=== PATIENT | male | born 1985 | race Caucasian/White ===

== ENCOUNTER 2019-03-24 13:32 | Inpatient (IN) | payer MEDICAID, SELFPAY ==
[2019-03-24 14:05] VITALS: BP 146/81; PULSE 107; RESP 20; TEMP 37.1; O2SAT 99; BMI 24.3
--- NOTE | 2019-03-24 14:11 | ED_ITS ---
Entered by Kelly Bolaños, acting as scribe for Adele Sharp MD Mar 24, 2019 13:32 HPI - General Adult General: Chief complaint: General Medical Stated complaint: swelling, redness L arm Time Seen by Provider: 03/24/19 14:11 Source: patient and RN notes reviewed Mode of arrival: ambulatory Limitations: no limitations History of Present Illness: HPI narrative: 33 yo male presents to ED with complaints of red streaks going from his L hand continuing up his L arm. He said he thinks he used some bad drugs . He used methamphetamines 3 days ago. He said his urine was dark 5 days ago but he began urinating black this morning. He said his joints hurt. He said he has red spots on L arm and back. He said he feels sick and is unable to eat; when he tries to eat he gags. The patient has a history of rhabdomyolysis. He said he smokes marijuana occasionally but does not drink. complaint: L arm infection Onset (ago): hour(s) (4) Location: left (arm) Radiation: back Severity: severe Quality: aching and constant Pain Consistency: constant Relieving factors: none Exacerbating factors: movement Associated symptoms: Reports decreased appetite, malaise, nausea and weakness; Deny chest pain, dyspnea, headache(s) or rash Treatments prior to arrival: none Review of Systems Const: Reports: malaise Eyes: Denies: change in vision ENMT: Denies: throat pain or ear pain Card: Denies: chest pain, swelling of feet/ankles, shortness of breath on exertion or shortness of breath when lying down Resp: Denies: shortness of breath or productive cough GI: Reports: nausea : Denies: flank pain Musc: Denies: back pain Skin/Breast: Denies: rash Neuro: Denies: headache, numbness in extremities or weakness in extremities Psych: Denies: depression Endo: Denies: excessive thirst [place]/Lymph: Denies: easy bruising PFS ED PFSH: Medical History (Updated 03/24/19 @ 18:09 by Janet Mcdermott MD) IV drug user Methamphetamine abuse Social History (Updated 03/24/19 @ 18:04 by Janet Mcdermott MD) Smoking and tobacco status: current every day smoker Alcohol intake: current Substance/Drug Use: current Desire information about substance/drug rehabilitation?: Yes Counseling given: Yes Physical Exam Const: COMMON NORMALS: no apparent distress, oriented x3 and alert GENERAL APPEARANCE: cooperative and well developed; not in distress and not diaphoretic ORIENTATION/CONSCIOUSNESS: Yes awake, Yes oriented to person, Yes oriented to place and Yes oriented to time HENMT: COMMON NORMALS: normocephalic, head/scalp atraumatic, external ears normal, external nose normal and moist oral mucous membranes HEAD & SCALP: normocephalic and atraumatic FACE & SINUS: normal facial exam; no facial tenderness NOSE: external nose normal EXTERNAL EAR: Yes external ears normal MOUTH: oral and palatal mucosa normal, lip normal and tongue normal TEETH & GINGIVA: no abnormal tooth and associated gingiva THROAT: posterior oropharynx normal and uvula midline Eye: COMMON NORMALS: PERRL and EOMs intact bilaterally PUPIL: Yes PERRL Neck/C-Spine: COMMON NORMALS: full ROM, supple and no JVD GENERAL: Yes normal visual inspection and Yes trachea midline CERVICAL SPINE: No cervical spine tenderness Lymph: LYMPHATIC: no lymphadenopathy noted Chest: COMMONS NORMALS: inspection of chest normal Resp: COMMON NORMALS: normal respiratory effort, no use of accessory muscles and clear to auscultation bilaterally EFFORT & INSPECTION: Yes able to speak in complete sentences and Yes symmetric chest movement AUSCULTATION: clear to auscultation bilaterally Cardio: COMMON NORMALS: no JVD, regular rate, regular rhythm, no gallops, no murmurs and peripheral pulses 2+ throughout RATE: regular rate RHYTHM: regular rhythm PERIPHERAL PULSES: pulses 2+ throughout GI: COMMON NORMALS: normal to inspection, nondistended, normoactive bowel sounds, soft to palpation and non-tender PALPATION: Yes soft Back/Pelvis: COMMON NORMALS: thoracic and lumbar spine normal to inspection and thoraco-lumbar ROM normal Extremity: COMMON NORMALS: normal to inspection, full ROM and normal capillary refill Neuro: COMMON NORMALS: oriented x3, CN's II-XII intact bilaterally, moves all extremities, no focal motor deficits and no sensory deficits noted SENSORIUM/ORIENTATION: Yes alert, Yes oriented to person, Yes oriented to place and Yes oriented to time Psych: COMMON NORMALS: mental status grossly normal, thought process normal, cooperative, affect normal, speech normal and activity/motor behavior normal SPEECH: Yes normal speech THOUGHT PROCESS: normal thought process Skin: COMMON NORMALS: skin turgor normal GENERAL SKIN EXAM: turgor normal Course ED course: Patient with rapidly progressing infection in his left hand and arm - as well as some pustular lesions on the extremities and trunk. He has systemic symptoms of malaise. He admits to meth IV use three days ago - he would like to stop using. He reports dark urine and history of rhabdomyolysis in the past - CK normal today. IVF, vancomycin started in the ED. He only wanted tylenol for pain. Vital Signs: Vital signs: Vital Signs Temperature 98.2 F 03/24/19 17:04 Pulse Rate 74 03/24/19 17:04 Respiratory Rate 18 03/24/19 17:04 Blood Pressure 132/68 03/24/19 17:04 Pulse Oximetry 97 03/24/19 17:04 [facility] - General Adult Lab Data: Labs: Lab Results 03/24/19 03/24/19 03/24/19 Range/Units 14:32 14:32 14:36 WBC 16.5 H (4.0-10.0) 10^3/ uL RBC 4.90 (4.1-5.3) 10^6/u L Hgb 14.0 (11.7-16.6) g/dL Hct 41.3 L (42.0-52.0) % MCV 84.3 (80-94) fL MCH 28.6 (28.0-34.0) pg MCHC 33.9 (30.0-36.0) g/dL RDW 13.0 (12.1-15.1) % Plt Count 337 (130-400) 10^3/c mm MPV 9.5 (7.4-10.4) fL Neut % (Auto) 72.8 % Lymph % (Auto) 16.6 % Blair % (Auto) 8.1 % Eos % (Auto) 1.8 % Baso % (Auto) 0.4 % Neut # (Auto) 12.0 H (1.8-7.7) 10^3/u L Lymph # (Auto) 2.7 (0.8-4.8) 10^3/u L Blair # (Auto) 1.3 H (0.2-0.9) 10^3/u L Eos # (Auto) 0.3 (0.0-0.8) 10^3/u L Baso # (Auto) 0.1 (0.0-0.1) 10^3/u L Nucleated RBC % (a uto) 0 % Nucleated RBCs # 0.0 /100WBC ESR (0-10) mm/hr Sodium (136-145) mmol/L Potassium (3.5-5.1) mmol/L Chloride (98-107) mmol/L Carbon Dioxide (22-29) mmol/L Anion Gap (5-19) BUN (6-20) mg/dL Creatinine (0.7-1.2) mg/dL GFR Calculation (90-130) mL/min Glucose (65-115) mg/dL Estimat Average Gl ucose Hemoglobin A1c (4.0-6.0) % Lactate (0.5-2.2) mmol/L Calcium (8.5-10.5) mg/dL Total Bilirubin (0.15-1.2) mg/dL AST (0-40) U/L ALT (0-41) U/L Alkaline Phosphata se (40-130) IU/L Creatine Kinase (39-308) U/L C-Reactive Protein (0.0-4.9) mg/L Total Protein (6.6-8.7) g/dL Albumin (3.5-5.2) g/dL Globulin (1.3-4.6) g/dL Urine Color Marycarmen (Yellow) Urine Appearance Sl hazy (CLEAR) Urine pH 7.0 (5-7) Ur Specific Gravit y 1.015 (1.005-1.030) Urine Protein Neg (Negative) Urine Glucose (UA) 2+ (Normal) Urine Ketones 1+ H (Negative) Urine Occult Blood 3+ H (Negative) Urine Nitrate Negative (Negative) Urine Bilirubin 1+ H (NEGATIVE) Urine Urobilinogen 4+ H (Negative) mg/dL Ur Leukocyte Alise ase Trace H (Negative) Urine RBC 50-80 H (0-2) /hpf Urine WBC 40-55 H (0-5) /hpf Ur Squamous Epith Cells 0-4 H (0-5) Urine Bacteria 1+ H (NONE) Urine Opiates Scre en Negative (Negative) ng/mL Acetaminophen (10-30) ug/mL Ur Barbiturates Sc reen Negative (Negative) ng/mL Ur Phencyclidine S crn Negative (Negative) ng/mL Ur Amphetamines Sc reen Positive H (Negative) ng/mL U Benzodiazepines Scrn Negative (Negative) ng/mL Urine Cocaine Scre en Negative (Negative) ng/mL U Marijuana (THC) Screen Positive H (Negative) ng/mL Ethyl Alcohol (0-10) mg/dL Hepatitis A IgM Ab (Nonreactive) Hep Bs Antigen (Nonreactive) Hep Bs Antibody (0-8.5) Hep B Core Total A b (Nonreactive) 03/24/19 03/24/19 03/24/19 Range/Units 14:36 14:36 14:36 WBC (4.0-10.0) 10^3/ uL RBC (4.1-5.3) 10^6/u L Hgb (11.7-16.6) g/dL Hct (42.0-52.0) % MCV (80-94) fL MCH (28.0-34.0) pg MCHC (30.0-36.0) g/dL RDW (12.1-15.1) % Plt Count (130-400) 10^3/c mm MPV (7.4-10.4) fL Neut % (Auto) % Lymph % (Auto) % Blair % (Auto) % Eos % (Auto) % Baso % (Auto) % Neut # (Auto) (1.8-7.7) 10^3/u L Lymph # (Auto) (0.8-4.8) 10^3/u L Blair # (Auto) (0.2-0.9) 10^3/u L Eos # (Auto) (0.0-0.8) 10^3/u L Baso # (Auto) (0.0-0.1) 10^3/u L Nucleated RBC % (a uto) % Nucleated RBCs # /100WBC ESR 24 H (0-10) mm/hr Sodium 130 L (136-145) mmol/L Potassium 3.4 L (3.5-5.1) mmol/L Chloride 91 L (98-107) mmol/L Carbon Dioxide 26 (22-29) mmol/L Anion Gap 16.4 (5-19) BUN 7 (6-20) mg/dL Creatinine 0.9 (0.7-1.2) mg/dL GFR Calculation 97.2 (90-130) mL/min Glucose 118 H (65-115) mg/dL Estimat Average Gl ucose Hemoglobin A1c (4.0-6.0) % Lactate 1.8 (0.5-2.2) mmol/L Calcium 9.4 (8.5-10.5) mg/dL Total Bilirubin 1.2 (0.15-1.2) mg/dL AST 42 H (0-40) U/L ALT 61 H (0-41) U/L Alkaline Phosphata se 80 (40-130) IU/L Creatine Kinase 210 (39-308) U/L C-Reactive Protein 67.4 H (0.0-4.9) mg/L Total Protein 8.1 (6.6-8.7) g/dL Albumin 4.5 (3.5-5.2) g/dL Globulin 3.6 (1.3-4.6) g/dL Urine Color (Yellow) Urine Appearance (CLEAR) Urine pH (5-7) Ur Specific Gravit y (1.005-1.030) Urine Protein (Negative) Urine Glucose (UA) (Normal) Urine Ketones (Negative) Urine Occult Blood (Negative) Urine Nitrate (Negative) Urine Bilirubin (NEGATIVE) Urine Urobilinogen (Negative) mg/dL Ur Leukocyte Alise ase (Negative) Urine RBC (0-2) /hpf Urine WBC (0-5) /hpf Ur Squamous Epith Cells (0-5) Urine Bacteria (NONE) Urine Opiates Scre en (Negative) ng/mL Acetaminophen < 5.0 L (10-30) ug/mL Ur Barbiturates Sc reen (Negative) ng/mL Ur Phencyclidine S crn (Negative) ng/mL Ur Amphetamines Sc reen (Negative) ng/mL U Benzodiazepines Scrn (Negative) ng/mL Urine Cocaine Scre en (Negative) ng/mL U Marijuana (THC) Screen (Negative) ng/mL Ethyl Alcohol < 10 (0-10) mg/dL Hepatitis A IgM Ab (Nonreactive) Hep Bs Antigen (Nonreactive) Hep Bs Antibody (0-8.5) Hep B Core Total A b (Nonreactive) 03/24/19 03/24/19 Range/Units 14:36 14:36 WBC (4.0-10.0) 10^3/ uL RBC (4.1-5.3) 10^6/u L Hgb (11.7-16.6) g/dL Hct (42.0-52.0) % MCV (80-94) fL MCH (28.0-34.0) pg MCHC (30.0-36.0) g/dL RDW (12.1-15.1) % Plt Count (130-400) 10^3/c mm MPV (7.4-10.4) fL Neut % (Auto) % Lymph % (Auto) % Blair % (Auto) % Eos % (Auto) % Baso % (Auto) % Neut # (Auto) (1.8-7.7) 10^3/u L Lymph # (Auto) (0.8-4.8) 10^3/u L Blair # (Auto) (0.2-0.9) 10^3/u L Eos # (Auto) (0.0-0.8) 10^3/u L Baso # (Auto) (0.0-0.1) 10^3/u L Nucleated RBC % (a uto) % Nucleated RBCs # /100WBC ESR (0-10) mm/hr Sodium (136-145) mmol/L Potassium (3.5-5.1) mmol/L Chloride (98-107) mmol/L Carbon Dioxide (22-29) mmol/L Anion Gap (5-19) BUN (6-20) mg/dL Creatinine (0.7-1.2) mg/dL GFR Calculation (90-130) mL/min Glucose (65-115) mg/dL Estimat Average Gl ucose 105 Hemoglobin A1c 5.3 (4.0-6.0) % Lactate (0.5-2.2) mmol/L Calcium (8.5-10.5) mg/dL Total Bilirubin (0.15-1.2) mg/dL AST (0-40) U/L ALT (0-41) U/L Alkaline Phosphata se (40-130) IU/L Creatine Kinase (39-308) U/L C-Reactive Protein (0.0-4.9) mg/L Total Protein (6.6-8.7) g/dL Albumin (3.5-5.2) g/dL Globulin (1.3-4.6) g/dL Urine Color (Yellow) Urine Appearance (CLEAR) Urine pH (5-7) Ur Specific Gravit y (1.005-1.030) Urine Protein (Negative) Urine Glucose (UA) (Normal) Urine Ketones (Negative) Urine Occult Blood (Negative) Urine Nitrate (Negative) Urine Bilirubin (NEGATIVE) Urine Urobilinogen (Negative) mg/dL Ur Leukocyte Alise ase (Negative) Urine RBC (0-2) /hpf Urine WBC (0-5) /hpf Ur Squamous Epith Cells (0-5) Urine Bacteria (NONE) Urine Opiates Scre en (Negative) ng/mL Acetaminophen (10-30) ug/mL Ur Barbiturates Sc reen (Negative) ng/mL Ur Phencyclidine S crn (Negative) ng/mL Ur Amphetamines Sc reen (Negative) ng/mL U Benzodiazepines Scrn (Negative) ng/mL Urine Cocaine Scre en (Negative) ng/mL U Marijuana (THC) Screen (Negative) ng/mL Ethyl Alcohol (0-10) mg/dL Hepatitis A IgM Ab Non-reactive (Nonreactive) Hep Bs Antigen Non-reactive (Nonreactive) Hep Bs Antibody 3.5 (0-8.5) Hep B Core Total A b Non-reactive (Nonreactive) Imaging Data^: CXR: Radiologist's impression: [address] [address] XRay Report Signed Patient: Vini Elder #: [id number] : 1985Acct#:[id number] Age/Sex: 33 / MADM Date: 03/24/19 [facility] Dr: Ordering Provider/Ordering MD: Adele Sharp MD Date of Service: 03/24/19 Procedure(s): XR chest 1V portable [id number] Accession Number(s): [id number] Report Number: [id number] WS: [id number] PORTABLE CHEST HISTORY: fever COMPARISON: 06/11/2013 Lungs are clear and well expanded. No pleural effusion or pneumothorax. Cardiac size: Normal. Mediastinum/Aorta: Normal mediastinum. No osseous abnormality seen. XR/XR chest 1V portable [id number] IMPRESSION: Unremarkable portable chest. Dictated By:Paula Aldana DO Signed By:Paula Aldana DOSigned Date/Time:03/24/19 1500 DD/ Discharge Plan Discharge Patient Disposition: Placed in Observation Admit Provider: Janet Mcdermott Discharge Date/Time: 03/24/19 17:06 Coding Level of Care Code ED Business Affairs Manager for Chg Fwd Exam Problem Focused The documentation recorded by the Miky alvarado Valerie R, accurately reflects the service I personally performed and the decisions made by Lila poe Kathryn L, MD Mar 24, 2019 13:32
--- NOTE | 2019-03-24 14:17 | XR_ITS ---
WS: [id number] PORTABLE CHEST HISTORY: fever COMPARISON: 06/11/2013 Lungs are clear and well expanded. No pleural effusion or pneumothorax. Cardiac size: Normal. Mediastinum/Aorta: Normal mediastinum. No osseous abnormality seen. XR/XR chest 1V portable [id number] IMPRESSION: Unremarkable portable chest.
[2019-03-24 14:42] LABS: Basophils # 0.1 10^3/uL (0.0-0.1); Basophils % 0.4 %; Eosinophils # 0.3 10^3/uL (0.0-0.8); Eosinophils % 1.8 %; Hematocrit 41.3 % (42.0-52.0); Lymphocytes # 2.7 10^3/uL (0.8-4.8); Lymphocytes % 16.6 %; Mean Corpuscular HGB Conc 33.9 g/dL (30.0-36.0); Mean Corpuscular Hemoglobin 28.6 pg (28.0-34.0); Mean Corpuscular Volume 84.3 fL (80-94); Mean Platelet Volume 9.5 fL (7.4-10.4); Monocytes # 1.3 10^3/uL (0.2-0.9); Monocytes % 8.1 %; Neutrophils % 72.8 %; Nucleated Red Blood Cells % 0 %; Platelet Count 337 10^3/cmm (130-400); White Blood Count 16.5 10^3/uL (4.0-10.0)
[2019-03-24 14:56] LABS: Alanine Aminotransferase 61 U/L (0-41); Albumin Level 4.5 g/dL (3.5-5.2); Alkaline Phosphatase 80 IU/L (40-130); Anion Gap 16.4 (5-19); Aspartate Amino Transferase 42 U/L (0-40); Blood Urea Nitrogen 7 mg/dL (6-20); C Reactive Protein 67.4 mg/L (0.0-4.9); Calcium 9.4 mg/dL (8.5-10.5); Carbon Dioxide 26 mmol/L (22-29); Chloride 91 mmol/L (98-107); Creatine Phosphokinase 210 U/L (39-308); Globulin 3.6 g/dL (1.3-4.6); Glomerular Filtration Rate 97.2 mL/min (90-130); Glucose 118 mg/dL (65-115); Lactate (Lactic Acid level) 1.8 mmol/L (0.5-2.2); Potassium 3.4 mmol/L (3.5-5.1); Sodium 130 mmol/L (136-145); Total Bilirubin 1.2 mg/dL (0.15-1.2); Total Protein 8.1 g/dL (6.6-8.7)
[2019-03-24] MEDS: ondansetron 2 mg/ML SDV 2 mL 4 MG IVP (14:57)
[2019-03-24] MEDS: vancomycin 1,000 MG in sodium chloride 0.9% 250 ML 250 MG IV (14:58)
[2019-03-24] MEDS: lactated ringers 1,000 ML 999 ML IV (15:02)
[2019-03-24 15:09] LABS: Acetaminophen < 5.0 ug/mL (10-30); Alcohol Level < 10 mg/dL (0-10)
[2019-03-24 15:22] LABS: Erythrocyte Sedimentation Rate 24 mm/hr (0-10)
[2019-03-24 15:22] LABS: Glucose Urine UA 2+ (Normal); Ketones Urine 1+ (Negative); Protein Urine Neg (Negative); Specific Gravity, Urine 1.015 (1.005-1.030); Urine Appearance SL Hazy (CLEAR); Urine Color Amber (Yellow)
[2019-03-24 15:23] LABS: Add Urine Microscopic? YES; Bilirubin Urine 1+ (NEGATIVE); Blood Urine 3+ (Negative); Leukocyte Esterase Urine Trace (Negative); Nitrate Urine Negative (Negative); Urobilinogen Urine 4+ mg/dL (Negative)
[2019-03-24 15:26] LABS: RBC Urine 50-80 /hpf (0-2)
[2019-03-24 15:27] LABS: Add Urine Culture? Yes; Bacteria Urine 1+; Squamous Epithelial Cell Urine 0-4 (0-5); WBC Urine 40-55 /hpf (0-5)
[2019-03-24 15:45] LABS: Barbiturates Screen Urine Negative (Negative); Benzodiazepines Screen Urine Negative (Negative); Cocaine Screen Urine Negative (Negative); Opiate Screen Urine Negative (Negative); PCP Screen Urine Negative (Negative); THC Screen Urine Positive (Negative)
--- NOTE | 2019-03-24 15:59 | USR_ITS ---
PROCEDURE INFORMATION: Exam: US Duplex Upper Extremity Veins Exam date and time: 03/24/2019 4:15 PM Age: 33 years old Clinical indication: Edema, localized; Lower extremity, left and upper extremity, left; Arm, upper and arm, lower and hand; Patient HX: Last 24 hours PT has had increasing redness and pain in lt hand and forearm; Additional info: Pain, swelling TECHNIQUE: Imaging protocol: Real-time Duplex ultrasound of the Upper Extremities with 2-D ulrich scale, color Doppler flow and spectral waveform analysis with image documentation. Complete exam focused on the bilateral upper extremity veins. COMPARISON: No relevant prior studies available. FINDINGS: Right deep veins: Unremarkable. Axillary and brachial veins are patent throughout without thrombus. Normal Doppler waveforms. Normal compressibility and/or augmentation response. Visualized internal jugular and subclavian veins are patent. Right superficial veins: Unremarkable. Visualized cephalic and basilic veins are patent without thrombus. Left deep veins: Unremarkable. Axillary and brachial veins are patent throughout without thrombus. Normal Doppler waveforms. Normal compressibility and/or augmentation response. Visualized internal jugular and subclavian veins are patent. Left superficial veins: Unremarkable. Visualized cephalic and basilic veins are patent without thrombus. Soft tissues: Unremarkable. US/[place] [id number] IMPRESSION: No acute findings. No evidence of deep vein thrombosis.
[2019-03-24 16:05] LABS: Amphetamines Screen Urine Positive (Negative)
[2019-03-24 16:38] VITALS: BP 137/79; PULSE 89; RESP 18; O2SAT 97
[2019-03-24 17:04] VITALS: BP 132/68; PULSE 74; RESP 18; TEMP 36.8; O2SAT 97
[2019-03-24 17:48] LABS: Estmated Average Glucose 105; Hemoglobin A1C 5.3 % (4.0-6.0)
--- NOTE | 2019-03-24 17:59 | PM.HP ---
Providers/Chief Complaint Admitting Physician: Janet Mcdermott MD Chief Complaint: RED STREAK UP LEFT ARM History of Present Illness Vini Elder is a 33 year old male with a history of methamphetamine use, last injected 3 days ago into the right arm through a cottonball and as he often does. Comes in today with complaints of multiple small follicles developing over the left arm red streaks extending up the left arm which he noticed over the last 24 hours. Is also noticed some additional particles over his lower back and states they developed over the last 24 hours. He has no history of fevers at this time. Endorsing some chills. Work-up in the ER is significant for leukocytosis of 16. Denies sharing any needles. Often re uses his needles. No h/o trauma. Reports history of bacteremia when he was a teenager however states that this was secondary to a dog bite that he had sustained on his hand. No known cardiac or valvular issues. Has multiple dental caries.No h/o syphilis. No h/o gonococcal infections. No joint pain. Review of Systems General: Reports: 10 or more systems reviewed and unremarkable except in HPI and below Const: Denies: fever, chills or body aches Eyes: Denies: change in vision, blurry vision or photophobia ENMT: Reports: hoarseness; Denies: throat pain, enlarged tonsils, painful swallowing or nasal congestion Card: Denies: chest pain, palpitations, irregular heart rhythm, edema, swelling of feet/ankles, lightheadedness, pre-syncope, shortness of breath on exertion or shortness of breath when lying down Resp: Denies: shortness of breath, productive cough, non-productive cough, wheezing, stridor, pain on inspiration, change in phlegm color, coughing up blood or chest congestion GI: Denies: abdominal pain, nausea, vomiting, vomiting blood, coffee grounds in vomit, difficulty swallowing, heartburn/indigestion, diarrhea, constipation, cramping, change in stool character, blood in stool or black tarry stool : Denies: flank pain, painful urination, urinary frequency, urinary urgency, urinary hesitancy or blood in urine Musc: Denies: neck pain, back pain, extremity pain, joint swelling, joint warmth or deformity Neuro: Denies: headache, numbness in extremities, weakness in extremities, changes in sensation, difficulty walking, frequent falls, dizziness, vertigo, behavioral changes, slurred speech or seizure-like activity Psych: Denies: anxiety, depression, suicidal ideation or homicidal ideation Endo: Denies: excessive urination, excessive thirst, tired all the time, cold intolerance or hot flashes [place]/Lymph: Denies: easy bruising or easy bleeding Medications/Allergies Home Medications Medication Instructions Recorded Confirmed Last Taken Type No Known Home Medications 03/24/19 03/24/19 Unknown History Allergies Allergy/AdvReac Type Severity Reaction Status Date / Time Penicillins Allergy ALGY-Swell Verified 03/24/19 14:10 Lip/Tongue/Throat PFSH Acute PFSH: Medical History (Updated 03/24/19 @ 18:09 by Janet Mcdermott MD) IV drug user Methamphetamine abuse Social History (Updated 03/24/19 @ 18:04 by Janet Mcdermott MD) Smoking and tobacco status: current every day smoker Alcohol intake: current Substance/Drug Use: current Desire information about substance/drug rehabilitation?: Yes Counseling given: Yes Vitals/I&O/Wt Last Vital Signs Temp 98.2 F 03/24/19 17:04 Pulse 74 03/24/19 17:04 Resp 18 03/24/19 17:04 BP 132/68 03/24/19 17:04 Pulse Ox 97 03/24/19 17:04 Weight last 48 hrs Weight 77.111 kg Physical Exam Narrative: EXAM NARRATIVE: GEN: Awake, alert and oriented, no acute distress CVS: S1S2 N RS: CTA B/L except crackles over RUL Abd: Soft, nt/nd , bs+ INSIDE SALES COORDINATOR: no focal neuro deficits EXT: multiple small follicles, total 5-6 in no. over his left arm with ed streaky rash, almost resembling lymphangitis, nessa withou gross tenderness. similar follculitis over lower back in midline. No spinal tenderness. No other join swelling. Faint maculopapular rash over upper anterior chest. No peripheral stigmata of endocarditis. Data : 03/24/19 14:36 03/24/19 14:36 Micro: Microbiology 03/24/19 14:43 Blood Culture - Preliminary Blood SPECIMEN COLLECTED 03/24/19 14:36 Blood Culture - Preliminary Blood SPECIMEN COLLECTED A&P Assessment and plan (1) Sepsis: Status: Acute Code(s): A41.9 - Sepsis, unspecified organism (2) Folliculitis: Status: Acute Code(s): L73.9 - Follicular disorder, unspecified (3) Lymphangitis: Status: Acute Code(s): I89.1 - Lymphangitis (4) IV drug user: Status: Acute Code(s): F19.90 - Other psychoactive substance use, unspecified, uncomplicated Additional A&P Information Admit to MedSurg unit. Sepsis criteria met with tachycardia and leukocytosis IV fluid resuscitation with normal saline at 75 cc an hour Patient gives history of IV drug use, injecting 2 cotton balls, high risk. With diffuse bilateral findings of scattered folliculitis and possible lymphangitis of the left arm, suspect septic thrombophlebitis versus bloodstream infection and possible endocarditis. 2 sets of blood cultures have been ordered. Repeat blood culture with fever spikes greater than 101 Fahrenheit. Upper extremity Doppler of both arms to look for thrombophlebitis Start empiric treatment with IV vancomycin. Monitor for methamphetamine Ativan as needed as needed Nicotine patch HIV, syphilis and gonococcal screening. Rash does not appear consistent with secondary syphilis. Further orders to be based on results of preliminary testing. DVT ppx: lovenox Code status: Attestations Medical Necessity Statement*: Anticipate greater than 2 midnight admission for sepsis, iv abx, work-up of possible lymphangitis and bloodstream infection. Coding Level of Care Code Acute Service Team Leader for Niko Keisha Diagnoses Sepsis A41.9 Folliculitis L73.9 Lymphangitis I89.1 IV drug user F19.90
[2019-03-24 18:20] LABS: Hepatitis A Antibody IgM. Non-Reactive (Nonreactive); Hepatitis B Surface AB. 3.5 (0-8.5); Hepatitis B Surface Antigen. Non-Reactive (Nonreactive)
[2019-03-24 18:58] LABS: Hepatitis C Virus Antibody Reactive (Nonreactive)
[2019-03-24] MEDS: enoxaparin 40 mg/0.4 mL Syringe SUBCUT (19:07)
[2019-03-24] MEDS: sodium chloride 0.9% 1,000 ML 75 ML IV (19:08)
[2019-03-24 20:00] VITALS: BP 122/62; PULSE 80; RESP 16; TEMP 36.9; O2SAT 98
[2019-03-24] MEDS: nicotine 14 mg Patch 1 PATCH TRANSDERMA (20:23)
[2019-03-24 21:47] LABS: Rapid Plasma Reagin Syphilis Nonreactive (Nonreactive)
[2019-03-24 23:19] LABS: HIV 1 & 2 Antibody Non-Reactive (Non-Reactiv); HIV 1 & 2 Antigen Non-Reactive (Non-Reactiv)
[2019-03-25] VITALS: BP 127/76; PULSE 86; RESP 20; TEMP 37.1; O2SAT 96
--- NOTE | 2019-03-25 02:40 | PM.EVENT ---
Event Note Event Note: Called that patient jaw swollen since beginning of shift. He is complaining of increase in left arm pain. Reports no change in red streaks or sores, but left hand more swollen also. Says having trouble swallowing due to pain and physical difficulty. This has been present for a week or so. On exam, has induration of right mandibular area from inside the mounth to about 1cm beyond the mandible on that side. Very poor dentition with necrotic looking teeth. Not able to express any pus and gum line not as bad appearing as I would expect given appearance of teeth. Small mildly tender, cervical chain lymphadenopathy noted. Mucosa pink. Skin without erythema. No definite fluctuance noted. Submandibular space remains soft. ROM neck not limited. On left arm, purulent sore medical 3rd digit, erythema dorsum of 4th digit extending beyond wrist proximately about 5 inches. Left axillary tender lymphadenopathy noted. Pt is not acutely ill appearing but does look to have discomfort at left arm in particular. On vancomycin. Suspect has dental abscess now also forming. Will add clindamycin for anaerobic coverage given penicillin allergy. With report of trouble swallowing, will go on and get a CT of head and neck soft tissue with contrast to evaluate further, rule out ludwigs angina. I discussed getting contrast with patient and he is agreeable. Denies history of contrast reactions. Cr 0.9. He is requesting more pain medication. Will give one dose of Toradol. retimed next dose of ibuprofen. Noted to be hep c positive with slight elevation in transaminases so have not ordered schedule acetaminophen. May have to consider oral narcotic agents at some point but trying to hold off. Discussed with him keeping arm elevated, applying some warm, moist heat. Had some Ativan earlier which did help some as well. Will monitor for progessing pain or migration of skin findings. Reviewed with nursing and patient.
[2019-03-25] MEDS: ketorolac 30 mg/mL INJ IVP (02:56)
[2019-03-25] MEDS: clindamycin 600 MG/50 ML PREMIX 100 MG IV (02:58)
--- NOTE | 2019-03-25 03:06 | CTR_ITS ---
PROCEDURE INFORMATION: Exam: CT Neck With Contrast Exam date and time: 03/25/2019 3:17 AM Age: 33 years old Clinical indication: Dysphagia / difficulty swallowing and mass, lump, or swelling in neck; Painful swallowing; Additional info: Acute mandibular swelling right and difficulty swallowing TECHNIQUE: Imaging protocol: Computed tomography images of the neck with intravenous contrast. Total DLP: 665.69 mGy-cm Radiation optimization: All CT scans at this facility use at least one of these dose optimization techniques: automated exposure control; mA and/or kV adjustment per patient size (includes targeted exams where dose is matched to clinical indication); or iterative reconstruction. Contrast material: OMNI 300; Contrast volume: 95 ml; Contrast route: 20G; COMPARISON: No relevant prior studies available. FINDINGS: Sinuses: [id number] mucosal thickening in the right maxillary sinus and minimal or mild mucosal thickening in a few ethmoidal air cells and the left maxillary sinus. No air-fluid levels. Nasopharynx: Unremarkable. Oropharynx: Prominence of the soft tissues along the posterior margin of the tongue bilaterally suggesting possible hyperplasia of lymphoid tissue. No significant tonsillar enlargement. Hypopharynx: Unremarkable Larynx: Unremarkable. Normal epiglottis. Retropharyngeal space: Unremarkable. Submandibular/Parotid glands: Unremarkable parotid and left submandibular glands. Slightly increased density within and probable slight enlargement of the right submandibular gland suggesting hyperemia. Thyroid: Normal. No enlarged or calcified nodules. Lymph nodes: 11 mm short axis diameter of a left axillary node and slight prominence of other left axillary nodes. Minimal enlargement of 1 level 2 node in the right neck. Enlarged or prominent right submandibular nodes. Trachea: Visualized trachea unremarkable. Lungs: Unremarkable upper lungs. Dental: Dental caries. Mastoid air cells: Left mastoidectomy. Possible minimal residual left mastoid disease. Bones/joints: Minimal narrowing of the C5-C6 disc. No acute fracture. Soft tissues: Density of 70-75 HU within the approximately 1.9 x 2.2 x 1.2 cm mass along the external margin of the right mandibular body. Soft tissue swelling and extensive haziness in the superficial fat of the right cheek and jaw. No gas bubbles within the right mass and the soft tissues of the right face/jaw. CT/CT neck w con* [id number] IMPRESSION: 1. Mass along the periphery of the right mandibular body suggesting an abscess, especially considering the presence of dental caries. Probable cellulitis in the right jaw and adjacent face as well, likely accounting for the slight enlargement of a few right neck nodes and probable slight hyperemia of the right submandibular. 2. Enlargement of at least 1 left axillary node. Possible lymphoid hyperplasia in both sides of the posterior margin of the tongue. 3. Chronic sinus disease detailed above. Left mastoidectomy. Possible minimal residual left mastoid disease. Radiation Dose CTDIVOL = (mGy): DLP = 665.69 (mGy-cm)
[2019-03-25] MEDS: iohexol 300 mg/mL 100 mL Btl IV (03:41)
[2019-03-25 04:00] VITALS: BP 139/86; PULSE 76; RESP 18; TEMP 37; O2SAT 98
[2019-03-25] MEDS: sodium chloride 0.9% 1,000 ML 75 ML IV (06:06)
[2019-03-25 07:07] LABS: Basophils # 0.1 10^3/uL (0.0-0.1); Basophils % 0.6 %; Eosinophils # 0.4 10^3/uL (0.0-0.8); Eosinophils % 3.5 %; Hematocrit 36.6 % (42.0-52.0); Hemoglobin 12.2 g/dL (11.7-16.6); Lymphocytes # 2.5 10^3/uL (0.8-4.8); Lymphocytes % 24.9 %; Mean Corpuscular HGB Conc 33.3 g/dL (30.0-36.0); Mean Corpuscular Hemoglobin 28.4 pg (28.0-34.0); Mean Corpuscular Volume 85.3 fL (80-94); Mean Platelet Volume 10.3 fL (7.4-10.4); Monocytes # 0.8 10^3/uL (0.2-0.9); Neutrophils # 6.3 10^3/uL (1.8-7.7); Neutrophils % 62.7 %; Nucleated Red Blood Cells % 0 %; Platelet Count 287 10^3/cmm (130-400); Red Blood Count 4.29 10^6/uL (4.1-5.3); Red Cell Distribution Width 13.2 % (12.1-15.1); White Blood Count 10.1 10^3/uL (4.0-10.0)
[2019-03-25 07:20] LABS: Alanine Aminotransferase 43 U/L (0-41); Albumin Level 3.3 g/dL (3.5-5.2); Alkaline Phosphatase 71 IU/L (40-130); Anion Gap 14.5 (5-19); Aspartate Amino Transferase 30 U/L (0-40); Blood Urea Nitrogen 9 mg/dL (6-20); Calcium 8.7 mg/dL (8.5-10.5); Carbon Dioxide 24 mmol/L (22-29); Chloride 101 mmol/L (98-107); Globulin 3.4 g/dL (1.3-4.6); Glomerular Filtration Rate 129.9 mL/min (90-130); Glucose 117 mg/dL (65-115); Potassium 3.5 mmol/L (3.5-5.1); Sodium 136 mmol/L (136-145); Total Bilirubin 0.5 mg/dL (0.15-1.2); Total Protein 6.7 g/dL (6.6-8.7)
[2019-03-25 07:34] VITALS: BP 115/68; PULSE 76; RESP 20; TEMP 36.4; O2SAT 97
[2019-03-25] MEDS: nicotine 14 mg Patch 1 PATCH TRANSDERMA (08:47)
[2019-03-25 11:17] VITALS: BP 129/72; PULSE 91; RESP 22; TEMP 36.5; O2SAT 98
[2019-03-25] MEDS: cefTRIAXone 2,000 MG in sodium chloride 0.9% (plus) 50 ML 100 MG IV (11:30)
[2019-03-25] MEDS: ibuprofen 200 mg Tablet 600 MG PO (11:36)
[2019-03-25 13:42] LABS: Vancomycin Trough 13.3 ug/mL (10-15)
[2019-03-25] MEDS: metroNIDAZOLE 500 MG Tablet PO (13:55)
--- NOTE | 2019-03-25 14:25 | PC.CHAP ---
Pastoral Care Encounter/Spiritual Assessment Type of Contact [] Declined director of global sales visit [] Patient/Family/Request visit [] Outpatient visit [] Follow-up visit [] Physician referral [] Code/Alert [x] Routine visit [] Staff referral [] Actively dying [] Patient sleeping [x] Family support [] [] Out of room [] Palliative care [] [] Receiving care in room [] Pre-surgical visit [] Trauma [] Long length of stay [] ICU visit [] Other: Relational/Emotional Strength [x] Patient feels connected with others/family/visitors/staff [] Distress [] Loneliness/isolation [] Abandonment Spirituality of Patient [] Person of Aditi [] Attends Pentecostal of their Aditi [x] Believes in Prayer [] Reads Bible or Religion materials [] There are Spiritual issues to be addressed Decorating Machine Operator Interventions [x] Prayer [x] Active listening [x] Non-anxious presence [x] Spiritual/emotional support [] Crisis/trauma care [] Spiritual counseling [] Bereavement support [] Provided bereavement packet [] Provided Bible/devotional materials [] Provided toy/stuffed animal, coloring book to patient or family member [] Provided Communion [] Anointing/[place] [] Salvation [x] Completed spiritual assessment [] Other: Impact on Illness or Injury [] Angry [] Fearful [] Anxious [] Often cries [] Exhaustion [] Unable to work [] Unable to attend spiritism [] Unable to walk/stand [] Unable to read [] Unable to drive [] Unable to eat/drink [] Unable to sleep [] Unable to be with family [] Patient intubated [] Other: Summary Paient was sitting up watching T.V and visiting with . Decorating Machine Operator had prayer for him and . Time spent with patient 15 min.
[2019-03-25 15:09] VITALS: BP 142/92; PULSE 92; RESP 22; TEMP 36.6; O2SAT 99
--- NOTE | 2019-03-25 15:13 | PM.PN ---
Subjective Subjective: Interval history: Arms are improving, no red streaks anymore. Doppler UE negative for thrombus in either limb. Overnight events noted. developed mandibular swelling yesterday at night. CT shows Mass along the periphery of the right mandibular body suggesting an abscess, especially considering the presence of dental caries. Probable cellulitis in the right jaw and adjacent face as well, likely accounting for the slight enlargement of a few right neck nodes and probable slight hyperemia of the right submandibular. Medications: Reviewed: Yes Vitals/I&O/Wt Last Vital Signs Temp 97.9 F 03/25/19 15:09 Pulse 92 03/25/19 15:09 Resp 22 H 03/25/19 15:09 BP 142/92 03/25/19 15:09 Pulse Ox 99 03/25/19 15:09 03/25/19 03/25/19 03/25/19 06:59 14:59 22:59 Intake Total 822.5 / 2612.5 660 / 660 50 / 710 Output Total 1000 / 1400 Balance -177.5 / 1212.5 660 / 660 50 / 710 Weight last 48 hrs Weight 77.111 kg Physical Exam Narrative: EXAM NARRATIVE: GEN: Awake, alert and oriented, no acute distress HEENT: B/L upper extremity streaks are better. Lymphadenopathy+. Follicles improving today. New swelling noted over R side of face submandibular region. Similar swelling noted over R gums internally CVS: S1S2 N RS: CTA B/L Abd: Soft, nt/nd , bs+ TRUST ACCOUNTS SUPERVISOR: no focal neuro deficits Data : 03/25/19 06:40 03/25/19 06:40 Micro: Microbiology 03/24/19 14:43 Blood Culture - Preliminary Blood NEGATIVE TO DATE 03/24/19 14:36 Blood Culture - Preliminary Blood NEGATIVE TO DATE 03/24/19 14:43 Chlamydia trachomatis ([facility]) - Final Urine Random Neisseria gonorrhoeae ([facility]) - Final A&P Assessment and plan (1) Submandibular swelling: Status: Acute Code(s): R22.0 - Localized swelling, mass and lump, head; R22.1 - Localized swelling, mass and lump, neck (2) Sepsis: Status: Acute Code(s): A41.9 - Sepsis, unspecified organism (3) Folliculitis: Status: Acute Code(s): L73.9 - Follicular disorder, unspecified (4) Lymphangitis: Status: Acute Code(s): I89.1 - Lymphangitis (5) IV drug user: Status: Acute Code(s): F19.90 - Other psychoactive substance use, unspecified, uncomplicated (6) Methamphetamine abuse: Status: Acute Code(s): F15.10 - Other stimulant abuse, uncomplicated Additional A&P Information WBC trending down today from 16 to 10. Arms clinically improving Now also detected to have R submandibular likely odontogenic abscess Continue iv vancomycin D/c clindamycin and start iv ceftriaxone and po flagyl for odontogenic infection. per review of past records patient has received cefazolin in the past without any adverse effects, therefore he tolerates cephalosporins No current airway compromise, patient able to chew, reports swelling is improving ENT consult on Wednesday to assess for possible drainage Blood cx remains pending at this time DVT ppx: lovenox Code status: Attestations Medical Necessity Statement*: admitted for sepsis 2/2 lymphangitis, submandibular infection, cultures pending Coding Level of Care Code Acute Health Care Legal Assistant for g Fwd Diagnoses Submandibular swelling R22.0; R22.1 Sepsis A41.9 Folliculitis L73.9 Lymphangitis I89.1 IV drug user F19.90 Methamphetamine abuse F15.10
--- NOTE | 2019-03-25 15:39 | PM.DCS ---
Discharge Providers Date of Admission: 03/24/19 17:05 Date of Discharge: March 25, 2019 Attending Provider at Admission: Janet Mcdermott MD Attending Provider at Discharge: Janet Mcdermott MD Diagnoses at Discharge Discharge Diagnosis (1) Submandibular swelling: Status: Acute (2) Sepsis: Status: Acute (3) Folliculitis: Status: Acute (4) Lymphangitis: Status: Acute (5) IV drug user: Status: Acute (6) Methamphetamine abuse: Status: Acute Reason for Visit Reason for Visit: Reason For Visit: RED STREAK UP LEFT ARM Hospital Course Discharge Summary: Patient decided to leave AMA in spite of ongoing treatment. It is extremely high risk for patient to leave with ongoing work up for sepsis, with high clinical suspicion for blood stream infection. For now, he has been provided with a prescription for cefuroxime and flagyl for empiric coverage, however in the absence of culture results, these may not be the targeted antibiotics. Discharge Data Data Completed and Pending: Completed Studies During Hospitalization Category Date Time Status CT neck w con* [id number] Urgent Cat Scan 03/25/19 03:06 Completed XR chest 1V dilan ble [id number] Urgent Exams 03/24/19 14:17 [place] [id number] Urgent Ultrasound 03/24/19 15:59 Completed Pending at discharge Category Date Time Status Blood Culture Sta t Lab 03/24/19 14:43 Results Urine Culture Sta t Lab 03/24/19 14:32 Received Labs from last 24 hours 03/25/19 03/25/19 03/25/19 13:15 06:40 06:40 WBC 10.1 H RBC 4.29 Hgb 12.2 Hct 36.6 L MCV 85.3 MCH 28.4 MCHC 33.3 RDW 13.2 Plt Count 287 MPV 10.3 Neut % (Auto) 62.7 Lymph % (Auto) 24.9 Adams % (Auto) 8.0 Eos % (Auto) 3.5 Baso % (Auto) 0.6 Neut # (Auto) 6.3 Lymph # (Auto) 2.5 Adams # (Auto) 0.8 Eos # (Auto) 0.4 Baso # (Auto) 0.1 Nucleated RBC % (a uto) 0 Nucleated RBCs # 0.0 Sodium 136 Potassium 3.5 Chloride 101 Carbon Dioxide 24 Anion Gap 14.5 BUN 9 Creatinine 0.7 GFR Calculation 129.9 Glucose 117 H Estimat Average Gl ucose Hemoglobin A1c Calcium 8.7 Total Bilirubin 0.5 AST 30 ALT 43 H Alkaline Phosphata se 71 Total Protein 6.7 Albumin 3.3 L Globulin 3.4 Vancomycin Trough 13.3 Urine Opiates Scre en Ur Barbiturates Sc reen Ur Phencyclidine S crn Ur Amphetamines Sc reen U Benzodiazepines Scrn Urine Cocaine Scre en U Marijuana (THC) Screen RPR Hepatitis A IgM Ab Hep Bs Antigen Hep Bs Antibody Hep B Core Total A b Hepatitis C Antibo dy HIV 1&2 Ab & HIV 1 Ag HIV 1&2 Antibody 03/24/19 03/24/19 03/24/19 14:36 14:36 14:36 WBC RBC Hgb Hct MCV MCH MCHC RDW Plt Count MPV Neut % (Auto) Lymph % (Auto) Adams % (Auto) Eos % (Auto) Baso % (Auto) Neut # (Auto) Lymph # (Auto) Adams # (Auto) Eos # (Auto) Baso # (Auto) Nucleated RBC % (a uto) Nucleated RBCs # Sodium Potassium Chloride Carbon Dioxide Anion Gap BUN Creatinine GFR Calculation Glucose Estimat Average Gl ucose 105 Hemoglobin A1c 5.3 Calcium Total Bilirubin AST ALT Alkaline Phosphata se Total Protein Albumin Globulin Vancomycin Trough Urine Opiates Scre en Ur Barbiturates Sc reen Ur Phencyclidine S crn Ur Amphetamines Sc reen U Benzodiazepines Scrn Urine Cocaine Scre en U Marijuana (THC) Screen RPR Nonreactive Hepatitis A IgM Ab Hep Bs Antigen Hep Bs Antibody Hep B Core Total A b Hepatitis C Antibo dy HIV 1&2 Ab & HIV 1 Ag Non-reactive HIV 1&2 Antibody Non-reactive 03/24/19 03/24/19 14:36 14:32 WBC RBC Hgb Hct MCV MCH MCHC RDW Plt Count MPV Neut % (Auto) Lymph % (Auto) Adams % (Auto) Eos % (Auto) Baso % (Auto) Neut # (Auto) Lymph # (Auto) Adams # (Auto) Eos # (Auto) Baso # (Auto) Nucleated RBC % (a uto) Nucleated RBCs # Sodium Potassium Chloride Carbon Dioxide Anion Gap BUN Creatinine GFR Calculation Glucose Estimat Average Gl ucose Hemoglobin A1c Calcium Total Bilirubin AST ALT Alkaline Phosphata se Total Protein Albumin Globulin Vancomycin Trough Urine Opiates Scre en Negative Ur Barbiturates Sc reen Negative Ur Phencyclidine S crn Negative Ur Amphetamines Sc reen Positive H U Benzodiazepines Scrn Negative Urine Cocaine Scre en Negative U Marijuana (THC) Screen Positive H RPR Hepatitis A IgM Ab Non-reactive Hep Bs Antigen Non-reactive Hep Bs Antibody 3.5 Hep B Core Total A b Non-reactive Hepatitis C Antibo dy Reactive H HIV 1&2 Ab & HIV 1 Ag HIV 1&2 Antibody Vitals: Last Vital Signs Temp 97.9 F 03/25/19 15:09 Pulse 92 03/25/19 15:09 Resp 22 H 03/25/19 15:09 BP 142/92 03/25/19 15:09 Pulse Ox 99 03/25/19 15:09 Discharge Plan Discharge Patient Disposition: Left Against Medical Advice Condition: Stable Prescriptions: New cefuroxime axetil 500 mg tablet 500 mg PO BID 7 Days Qty: 14 RF: 0 Flagyl 500 mg tablet 500 mg PO TID 7 Days Qty: 21 RF: 0 No Action No Known Home Medications RF: 0 Discharge Date/Time: 03/25/19 15:49 Discharge Attestations Time Spent in Discharge Care*: less than 30 min Quality Metrics Clinical Quality Measures During this hospital stay, did patient experience: None Coding Level of Care Code Acute Vacuum Truck Driver for g Fwd Diagnoses Submandibular swelling R22.0; R22.1 Sepsis A41.9 Folliculitis L73.9 Lymphangitis I89.1 IV drug user F19.90 Methamphetamine abuse F15.10
[2019-03-25 15:48] VITALS: BP 142/92; PULSE 92; RESP 22; TEMP 36.6; O2SAT 99
== END 2019-03-25 15:49 | disposition left against medical advice (07) | DRG 872 ==
LOC: ER 14:11 → MEDSURG 16:27
PROVIDERS: Admitting Provider Student in an Organized Health Care Education/Training Program; Emergency Provider Emergency Medicine; Visit Provider Student in an Organized Health Care Education/Training Program
DX: A41.9 Sepsis, unspecified organism (principal); L73.9 Follicular disorder, unspecified; F17.210 Nicotine dependence, cigarettes, uncomplicated; I89.1 Lymphangitis; F15.10 Other stimulant abuse, uncomplicated
CPT/HCPCS: 12345; 36415; 70491; 71045; 80053; 80202; 80306; 80307; 81001; 82550; 83036; 83605; 85025; 85651; 86140; 86592; 86705; 86706; 86709; 86803; 87040; 87086; 87340; 87491; 87591; 87806; 93970; 96360; 96361; 96372; 96375; 99283; A9270; G0378; J0696; J1650; J1885; J2405; J3370; J3490; J7030; J7050; Q9967

== ENCOUNTER 2019-03-24 13:32 | Emergency (ER) | payer MEDICAID, SELFPAY | END 2019-03-24 17:06 | disposition still patient (30) | LOC: ER 05-17 10:07 | PROVIDERS: Emergency Provider Emergency Medicine | DX: Z76.89 Persons encountering health services in other specified circumstances (principal) | CPT/HCPCS: 36415; 71045; 80053; 80306; 80307; 81001; 82550; 83036; 83605; 85025; 85651; 86140; 86592; 86705; 86706; 86709; 86803; 87040; 87086; 87340; 87491; 87591; 87806; 93970; 96360; 96361; 96365; 96366; 96368; 96375; 99283; 99285; A9270; G0378; J2405; J3370; J7050 ==

== ENCOUNTER 2021-06-12 12:59 | Emergency (ER) | payer MEDICAID, SELFPAY ==
[2021-06-12 13:24] VITALS: BP 183/98; PULSE 77; RESP 18; TEMP 36.6; O2SAT 98; BMI 25.8
--- NOTE | 2021-06-12 13:38 | ED_ITS ---
HPI - Dental/Oral General: Chief complaint: Dental/Oral Stated complaint: Toothache Time Seen by Provider: 06/12/21 13:36 Source: patient Mode of arrival: ambulatory Limitations: no limitations History of Present Illness: Patient is a 35-year-old male who presents to ED today with a complaint of dental pain and swelling that he began noticing yesterday. Patient is eating and drinking normally. He does not complain of any difficulty swallowing or controlling secretions. Teeth map: 1. Onset (ago): day(s) (yesterday) Duration: constant Severity: moderate Relieving factors: nothing Exacerbating factors: nothing Associated symptoms: Reports no associated symptoms; Denies odynophagia Treatment prior to arrival: none Review of Systems Eyes: Denies: change in vision ENMT: Reports: dental pain; Denies: throat pain, odynophagia, hoarseness, oral sores, nasal discharge, nasal congestion or sinus pain GI: Denies: nausea or vomiting Musc: Denies: neck pain Skin/Breast: Denies: rash Neuro: Denies: headache(s), dizziness or vertigo PFS ED PFSH: Medical History IV drug user Methamphetamine abuse Social History Smoking and tobacco status: current every day smoker Alcohol intake: current Desire information about substance/drug rehabilitation?: Yes Counseling given: Yes Physical Exam Const: COMMON NORMALS: no acute distress, patient oriented x3, no limitations, alert and well nourished GENERAL APPEARANCE: cooperative HENMT: COMMON NORMALS: Normal external nose present HEAD & SCALP: normal to inspection FACE & SINUS IMAGES: 1. mild swelling to R upper lip NOSE: Normal external nose present MOUTH: Normal oral and palatal mucosa present and tongue normal TEETH & GINGIVA: Yes poor dentition and Yes other (pt has extensive wide spread dental decay) TEETH & GINGIVA IMAGES: 1. several completely decayed teeth with some edema/developing abscess to upper gumline w/o drainage or fluctuance THROAT: posterior oropharynx normal, tonsils normal and uvula midline Eye: GENERAL EYE: appearance normal, both eyes and all related structures Neck/C-Spine: COMMON NORMALS: full ROM and no lymphadenopathy GENERAL: Yes normal visual inspection, No anterior neck swelling, No lymphadenopathy and No submandibular swelling Neuro: JULIOCESAR COMA SCALE: document GCS findings [place] coma scale eye opening: Spontaneous [place] coma scale verbal response: Orientated Juliocesar coma scale motor response: Obey commands Juliocesar coma scale total score: 15 COMMON NORMALS: patient oriented x3, CN's II-XII intact bilaterally, moves all extremities, no focal motor deficits and no sensory deficits noted SENSORIUM/ORIENTATION: Yes alert Course Vital Signs: Vital signs: Vital Signs Temperature 97.8 F 06/12/21 13:24 Pulse Rate 77 06/12/21 13:24 Respiratory Rate 18 06/12/21 13:24 Blood Pressure 183/98 06/12/21 13:24 Pulse Oximetry 98 06/12/21 13:24 MDM - Dental/Oral Medical Decision Making Will give IM clinda here and sent home with RX. Patient was given dental resources. Strict return to ED precautions given regarding worsening pain, swelling, fevers, DUKES, visual changes or any other concerns he has. Discharge Plan Discharge Patient Disposition: Home Clinical Impression: Dental abscess, Dental caries Condition: Stable Prescriptions: New Peridex 0.12 % mouthwash 15 ml buccal BID Qty: 473 0RF clindamycin HCl 300 mg capsule 300 mg PO Q6H 7 Days Qty: 28 0RF Discharge Orders: Discharge ED (Routine); Ordered 06/12/21 Ordered By: Jailyn Garrido Patient Instructions: Dental Abscess (ED) Coding Level of Care Code ED Nurse'S Aides Teacher for Barbara Valdes
[2021-06-12] MEDS: clindamycin 150 mg/mL SDV 6 mL 600 MG IM (14:09)
== END 2021-06-12 14:12 | disposition home or self-care (01) ==
PROVIDERS: Emergency Provider Physician Assistant
DX: K04.7 Periapical abscess without sinus (principal); K02.9 Dental caries, unspecified
CPT/HCPCS: 96372; 99283; J3490

== ENCOUNTER 2024-02-05 13:37 | Emergency (ER) | payer SELFPAY ==
[2024-02-05 13:56] VITALS: BP 154/101; PULSE 91; RESP 16; TEMP 36.6; O2SAT 96; BMI 29.5
--- NOTE | 2024-02-05 14:51 | W.ED.BACK ---
HPI - Back Pain/Injury General: Chief Complaint: Back Pain/Injury Stated Complaint: Back pain Time Seen by Provider: 02/05/24 14:25 History of Present Illness: Patient is a 38-year-old male that presents to the emergency department with complaints of low back pain that radiates into the left lower extremity. Patient reports that he lifted his grandchild on [place] and felt a pulling sensation. Has had pain that has progressed to now radiating down the left lower extremity along the lateral aspect. Patient denies numbness or tingling. He denies prior back injury. He has trialed [id number]-otl-[id number] remedies but no relief in his symptoms Related Data Previous Rx's Medication Instructions Recorded chlorhexidine gluconate 0.12 % 15 ml buccal BID #473 mL 06/12/21 mouthwash (Peridex) Allergies Allergy/AdvReac Type Severity Reaction Status Date / Time Penicillins Allergy DEXPhillip-Swell Verified 03/24/19 14:10 Lip/Tongue/Throat Review of Systems General: Reports: 10 or more systems reviewed and unremarkable except in HPI and below PFSH ED PFSH: Medical History IV drug user Methamphetamine abuse Social History Smoking and tobacco/nicotine status: current every day tobacco/nicotine user Alcohol intake: current Substance/Drug Use: current Physical Exam Const: COMMON NORMALS: no acute distress, patient oriented x3 and alert GENERAL APPEARANCE: cooperative ORIENTATION/CONSCIOUSNESS: Yes awake, Yes oriented to person, Yes oriented to place and Yes oriented to time Neck/C-Spine: COMMON NORMALS: full ROM GENERAL: Yes normal visual inspection Chest: COMMONS NORMALS: normal inspection of the chest Breast/axilla inspection: Yes no chest deformity, asymmetry, normal contours, no nodules, masses, tenderness Resp: COMMON NORMALS: normal respiratory effort, No retractions and No use of accessory muscles EFFORT & INSPECTION: Yes able to speak in complete sentences and Yes symmetric chest movement Cardio: COMMON NORMALS: regular rate and Peripheral pulses 2+ throughout RATE: regular rate PERIPHERAL PULSES: Peripheral pulses 2+ throughout GI: COMMON NORMALS: non-tender INSPECTION: Yes normal to inspection RECTAL EXAM: Yes deferred Back/Pelvis: OTHER: Patient complaints of left-sided back pain?off midline. Pain started there but now radiates down the buttock into the lateral aspects of the left lower extremity?L5 distribution? Patient has 5/5 strength in hip flexor, quad, gastroc, ant tib, toe extensors Sensation intact to light touch Denies numbness and tingling Extremity: COMMON NORMALS: normal to inspection GENERAL: Yes normal exam except as noted Neuro: COMMON NORMALS: patient oriented x3 SENSORIUM/ORIENTATION: Yes alert, Yes oriented to person, Yes oriented to place and Yes oriented to time CRANIAL NERVES: Yes CN normal except as noted Psych: COMMON NORMALS: mental status grossly normal, Normal thought process present, cooperative, activity/motor behavior normal, denies homicidal ideation and denies suicidal ideation THOUGHT PROCESS: Normal thought process present Skin: COMMON NORMALS: no rashes or lesions noted, no wounds and turgor normal GENERAL SKIN EXAM: no rashes or lesions noted and turgor normal Course Vital Signs: Vital signs: Vital Signs Temperature 97.9 F 02/05/24 13:56 Pulse Rate 91 02/05/24 13:56 Respiratory Rate 16 02/05/24 13:56 Blood Pressure 154/101 02/05/24 13:56 Pulse Oximetry 96 02/05/24 13:56 Oxygen Delivery Me thod Room Air 02/05/24 13:56 MDM - Back Pain/Injury Medical Decision Making Patient is a 38-year-old man that presents to the emergency department with lumbar back pain that radiates in the lateral aspect of left lower extremity Patient has no weakness numbness or tingling. He is able to ambulate He is full strength In the emergency department I treated his pain with ketorolac, Decadron, tizanidine. We are going to give him back exercises to do at home. He does not warrant an MRI, nor my able to perform her here today. If he is not better in 2 weeks, he needs to follow-up with his primary care doctor Before I could reevaluate patient, he eloped from the ER No radiology studies performed this visit Discharge Plan Discharge Patient Disposition: Left Against Medical Advice Clinical Impression: Strain of lumbar region, Lumbar radiculopathy Condition: Stable Prescriptions: No Action Peridex 0.12 % mouthwash 15 ml buccal BID Qty: 473 0RF Discharge Diet: Advance as tolerated Discharge Activity: Resume usual activity Patient Instructions: Lumbar Radiculopathy (ED), Lower Back Exercises (ED) Activity Restrictions/Additional Instructions: 1 important factor and keeping a healthy back is keeping a strong back. Need to work on core strengthening exercises. Please perform the exercises once your pain improves. The ketorolac I have given you is a drug in the family of NSAIDs. NSAID stands for nonsteroidal anti-inflammatory drug. Other drugs in the family include ibuprofen, Aleve, naproxen. Do not take additional NSAIDs while taking ketorolac. We also given you a Medrol Dosepak. This is a steroid pack that will help relieve inflammation on the nerves. Take as prescribed The tizanidine is a muscle relaxer. This will help with your low back pain. It will not get rid of the pain completely but it will lessen it to where you can get up and move. Standing upright will help elongate the muscles which will help relieve muscle spasms and pain. If you are not better in 2 weeks, you need to follow-up with your primary care doctor to discuss additional imaging or treatment Patient left AMA before I could reevaluate him Coding Level of Care Code ED Certified Fire Investigator for Barbara Valdes
[2024-02-05] MEDS: tizanidine 4 mg Tablet PO (14:52)
[2024-02-05] MEDS: dexamethasone 10 mg/mL INJ IM (14:52)
[2024-02-05] MEDS: ketorolac 30 mg/mL INJ IM (14:52)
== END 2024-02-05 16:20 | disposition left against medical advice (07) ==
PROVIDERS: Emergency Provider Nurse Practitioner
DX: S39.012A Strain of muscle, fascia and tendon of lower back, initial encounter (principal); M54.16 Radiculopathy, lumbar region; X58.XXXA Exposure to other specified factors, initial encounter; Z72.0 Tobacco use
CPT/HCPCS: 96372; 99284; J1100; J1885